=== PATIENT | male | born 1955 | race Caucasian/White ===

== ENCOUNTER 2022-04-26 09:48 | Emergency (ER) | payer MEDICARE, SELFPAY ==
[2022-04-26 09:56] VITALS: BP 146/97; PULSE 61; RESP 18; TEMP 36.4; O2SAT 98; BMI 28.1
--- NOTE | 2022-04-26 10:17 | ED.GENADULT ---
HPI - General Adult General Chief complaint: Chest Pain Stated complaint: high BP, L arm tingly Time Seen by Provider: 04/26/22 09:50 History of Present Illness HPI narrative: This 66-year-old male comes in reporting some chest tightness and discomfort that occurred with light activity just prior to arrival. He also had some tingling sensation in his right upper arm in the medial aspect just above the elbow. He does not report any nausea, vomiting, lightheadedness, shortness of breath, or diaphoresis. He does not have any prior exercise intolerance. He does not have any cardiac risk factors except for hypercholesterolemia. Prior to this he has been in good health. He does not take any medications. He did take an ibuprofen prior to arrival. Related Data Home Medications Medication Instructions Recorded Confirmed No Known Home Medications 04/26/22 04/26/22 Allergies Allergy/AdvReac Type Severity Reaction Status Date / Time No Known Drug Allergies Allergy Verified 04/26/22 09:56 Review of Systems Status of ROS: Reports: 10 or more systems reviewed and unremarkable except as noted in History and below Narrative: Constitutional: No fevers, no weight gain or loss. Eyes: No discharge. No vision changes. HENT: No congestion, no sore throat, no ear pain. Cardiovascular: No palpitations. Chest discomfort as described above. Respiratory: No shortness of breath, no wheezes, no cough. Gastrointestinal: No abdominal pain, no vomiting, no diarrhea. Genitourinary: No dysuria, no hematuria. Musculoskeletal: Normal range of motion. Skin: No rashes, no pruritis. Neurological: No dizziness, weakness, sensory change, speech change. Endo/Heme/Allergies: No bruising or bleeding. No polydipsia. Pysch: no suicidality, no anxiety, no insomnia. All other systems reviewed and are negative. PFSH PFSH Social History Non-prescribed substance use: denies use Exam Const: Vital Signs, click to edit/add: Vital Signs - 24 hr 04/26/22 09:56 04/26/22 15:30 Temperature 97.6 F Pulse Rate [Left P ulse Oximeter] 61 55 L Respiratory Rate 18 20 Blood Pressure [Le ft Upper Arm] 146/97 H 137/92 H Pulse Oximetry 98 99 Other: Constitutional: Well-developed, well-nourished, no acute distress. HEENT: Normocephalic, atraumatic. Neck: Normal range of motion. Nontender. Supple. Heart: Regular. No murmurs. Normal rate. Intact distal pulses. Lungs: Clear to auscultation. No chest discomfort. No wheezes, rhonchi, or rales. Abdomen: Normal bowel sounds. Nontender. No rebound tenderness. Genitalia: Deferred. Back: No midline tenderness. Normal range of motion. Extremities: Normal range of motion. No injury. Skin: Intact. No rash. Warm. No erythema or pallor. Neurologic: No altered sensation. No weakness. Alert and oriented. Psychiatric: No suicidality. No anxiety or depression. No insomnia. Nursing notes and vitals signs are reviewed. Course Vital Signs Vital signs: Initial Vital Signs Temperature 97.6 F 04/26/22 09:56 Temperature Source Temporal Artery Scan 04/26/22 09:56 Pulse Rate 61 04/26/22 09:56 Pulse Rhythm 04/26/22 09:56 Respiratory Rate 18 04/26/22 09:56 Blood Pressure 146/97 H 04/26/22 09:56 Blood Pressure Mean 113 04/26/22 09:56 Blood Pressure Position Sitting 04/26/22 09:56 Pulse Oximetry 98 04/26/22 09:56 Oxygen Delivery Method 04/26/22 09:56 Vital Signs Temperature 97.6 F 04/26/22 09:56 Pulse Rate 61 04/26/22 09:56 Respiratory Rate 18 04/26/22 09:56 Blood Pressure 146/97 H 04/26/22 09:56 Pulse Oximetry 98 04/26/22 09:56 Temperature 97.6 F 04/26/22 09:56 Pulse Rate 55 L 04/26/22 15:30 Respiratory Rate 20 04/26/22 15:30 Blood Pressure 137/92 H 04/26/22 15:30 Pulse Oximetry 99 04/26/22 15:30 Medical Decision Making MDM Narrative Medical decision making narrative: This patient comes in with some chest tightness as described above. His EKG shows normal sinus rhythm without any sign of ST or T-wave abnormalities. His initial troponin also returned at 0.03. He is not triggering his symptoms of big concern for a coronary artery event. He states that he has good exercise tolerance and has not had any chest pain with exertion in the past. He does have some family history and his age is placing him at risk. He also reports hyperlipidemia that is untreated. A repeat troponin returns elevated at 0.36. This was a couple hours after his initial stay here. Again a couple hours later his troponin increased exponentially to 2.47. The patient received 4 baby aspirin initially upon arrival here and states that his pain was gone. He has not had any pain since then. When his troponin increased to 2.47 he was placed on heparin according to protocol. Attempt was made to transfer him but there were no beds available for several hours. Finally he is excepted at [facility]. Dr. Coleman is the accepting physician there. Lab Data Labs: Lab Results 04/26/22 04/26/22 04/26/22 Range/Units 10:22 10:22 10:22 WBC 6.05 (4.50-11.00) K/uL RBC 4.74 (4.30-5.90) m/uL Hgb 14.8 (13.5-17.5) gm/dL Hct 43.8 (37.0-53.0) % MCV 92 (80-100) fL MCH 31 (26-34) pg MCHC 34 (32-36) gm/dL RDW Coeff of Beckie 13.4 (11.5-15.5) % Plt Count 238 (140-440) K/uL Neut % (Auto) 73.9 H (42.0-72.0) % Lymph % (Auto) 15.5 L (20-44) % [place] % (Auto) 7.3 (0.0-11.0) % Eos % (Auto) 2.3 (0.0-7.0) % Baso % (Auto) 0.3 (0.0-3.0) % Neut # (Auto) 4.50 (1.7-7.0) K/uL Lymph # (Auto) 0.90 (0.90-2.90) K/uL [place] # (Auto) 0.40 (0.00-0.90) K/UL Eos # (Auto) 0.14 (0.00-0.50) K/uL Baso # (Auto) 0.02 (0.00-0.30) K/uL Abs Immat Gran (auto) 0.04 (0.00-0.30) K/uL INR (0.91-1.10) APTT (23-33) Seconds Sodium 136 (135-149) mmol/L Potassium 4.1 (3.6-5.1) mmol/L Chloride 107 (96-114) mmol/L Carbon Dioxide 22 (20-32) mmol/L BUN 20 (7-30) mg/dL Creatinine 0.9 (0.5-1.5) mg/dL Estimated Creat Clear 70.70 Estimated GFR 93 ml/min Glucose 114 (60-115) mg/dL Calcium 8.9 (8.4-10.6) mg/dL Troponin I (0.01-0.04) ng/mL SARS-CoV-2 (PCR) (Negative) POC Troponin I 0.03 (0.01-0.04) ng/ml 04/26/22 04/26/22 04/26/22 Range/Units 10:22 12:30 12:33 WBC (4.50-11.00) K/uL RBC (4.30-5.90) m/uL Hgb (13.5-17.5) gm/dL Hct (37.0-53.0) % MCV (80-100) fL MCH (26-34) pg MCHC (32-36) gm/dL RDW Coeff of Beckie (11.5-15.5) % Plt Count (140-440) K/uL Neut % (Auto) (42.0-72.0) % Lymph % (Auto) (20-44) % [place] % (Auto) (0.0-11.0) % Eos % (Auto) (0.0-7.0) % Baso % (Auto) (0.0-3.0) % Neut # (Auto) (1.7-7.0) K/uL Lymph # (Auto) (0.90-2.90) K/uL [place] # (Auto) (0.00-0.90) K/UL Eos # (Auto) (0.00-0.50) K/uL Baso # (Auto) (0.00-0.30) K/uL Abs Immat Gran (auto) (0.00-0.30) K/uL INR 1.06 (0.91-1.10) APTT 38 H (23-33) Seconds Sodium (135-149) mmol/L Potassium (3.6-5.1) mmol/L Chloride (96-114) mmol/L Carbon Dioxide (20-32) mmol/L BUN (7-30) mg/dL Creatinine (0.5-1.5) mg/dL Estimated Creat Clear Estimated GFR ml/min Glucose (60-115) mg/dL Calcium (8.4-10.6) mg/dL Troponin I 0.36 H* (0.01-0.04) ng/mL SARS-CoV-2 (PCR) (Negative) POC Troponin I 0.31 H (0.01-0.04) ng/ml 04/26/22 04/26/22 Range/Units 14:41 16:54 WBC (4.50-11.00) K/uL RBC (4.30-5.90) m/uL Hgb (13.5-17.5) gm/dL Hct (37.0-53.0) % MCV (80-100) fL MCH (26-34) pg MCHC (32-36) gm/dL RDW Coeff of Beckie (11.5-15.5) % Plt Count (140-440) K/uL Neut % (Auto) (42.0-72.0) % Lymph % (Auto) (20-44) % [place] % (Auto) (0.0-11.0) % Eos % (Auto) (0.0-7.0) % Baso % (Auto) (0.0-3.0) % Neut # (Auto) (1.7-7.0) K/uL Lymph # (Auto) (0.90-2.90) K/uL [place] # (Auto) (0.00-0.90) K/UL Eos # (Auto) (0.00-0.50) K/uL Baso # (Auto) (0.00-0.30) K/uL Abs Immat Gran (auto) (0.00-0.30) K/uL INR (0.91-1.10) APTT (23-33) Seconds Sodium (135-149) mmol/L Potassium (3.6-5.1) mmol/L Chloride (96-114) mmol/L Carbon Dioxide (20-32) mmol/L BUN (7-30) mg/dL Creatinine (0.5-1.5) mg/dL Estimated Creat Clear Estimated GFR ml/min Glucose (60-115) mg/dL Calcium (8.4-10.6) mg/dL Troponin I 2.47 H* (0.01-0.04) ng/mL SARS-CoV-2 (PCR) Negative SARS-CoV-2 (Negative) POC Troponin I (0.01-0.04) ng/ml ECG Data Attestation: I personally reviewed and interpreted this ECG as follows: Interpretation: Normal sinus rhythm, rate 58 beats per minute. There are no ST or T-wave abnormalities. Discharge Plan Discharge Clinical Impression: Non-STEMI (non-ST elevated myocardial infarction) Patient Disposition: Xfer Other Condition: Unchanged Prescriptions: No Action No Known Home Medications 0RF Follow Up/Referrals: Provider,Not a Local [Primary Care Provider] - Stand Alone Forms: [facility] Info Instructions
[2022-04-26] MEDS: ASPIRIN 81 MG TAB.CHEW 324 MG PO (10:34)
[2022-04-26 10:49] LABS: Troponin, Point-of-Care* 0.03 ng/ml (0.01-0.04)
[2022-04-26 10:55] LABS: Chloride* 107 mmol/L (96-114)
[2022-04-26 10:56] LABS: Potassium* 4.1 mmol/L (3.6-5.1); Sodium* 136 mmol/L (135-149)
[2022-04-26 10:58] LABS: Creatinine* 0.9 mg/dL (0.5-1.5); Estimated Glomerular Filt Rate 93 ml/min
[2022-04-26 10:59] LABS: Blood Urea Nitrogen* 20 mg/dL (7-30); Calcium* 8.9 mg/dL (8.4-10.6); Carbon Dioxide* 22 mmol/L (20-32); Glucose* 114 mg/dL (60-115)
[2022-04-26 12:14] LABS: Basophils Absolute Auto 0.02 K/uL (0.00-0.30); Basophils Percent Auto 0.3 % (0.0-3.0); Eosinophils Absolute Auto 0.14 K/uL (0.00-0.50); Eosinophils Percent Auto 2.3 % (0.0-7.0); Hematocrit 43.8 % (37.0-53.0); Hemoglobin* 14.8 gm/dL (13.5-17.5); Immature Granulocytes Abs Auto 0.04 K/uL (0.00-0.30); Lymphocytes Percent Auto 15.5 % (20-44); Mean Corpuscular HGB Conc 34 gm/dL (32-36); Mean Corpuscular Hemoglobin 31 pg (26-34); Mean Corpuscular Volume 92 fL (80-100); Monocytes Percent Auto 7.3 % (0.0-11.0); Neutrophils Percent Auto 73.9 % (42.0-72.0); Platelet Count* 238 K/uL (140-440); RDW Coefficient of Variation % 13.4 % (11.5-15.5); Red Blood Count 4.74 m/uL (4.30-5.90); White Blood Count* 6.05 K/uL (4.50-11.00)
[2022-04-26 12:15] LABS: Slide Review Reflex No
[2022-04-26 13:12] LABS: Troponin, Point-of-Care* 0.31 ng/ml (0.01-0.04)
[2022-04-26 13:23] LABS: Troponin I* 0.36 ng/mL (0.01-0.04)
--- NOTE | 2022-04-26 15:18 | ED.NURSE ---
Critical lab received, landen Yan 2.47. updated.
[2022-04-26 15:19] LABS: Troponin I* 2.47 ng/mL (0.01-0.04)
[2022-04-26 15:30] VITALS: BP 137/92; PULSE 55; RESP 20; O2SAT 99
[2022-04-26 15:34] LABS: INR 1.06 (0.91-1.10); Prothrombin Time 14.3 Seconds
[2022-04-26 15:35] LABS: Partial Thromboplastin Time* 38 Seconds (23-33)
[2022-04-26] MEDS: HEPARIN 5,000 UNIT/0.5 ML INJ 4000 UNIT IVP (16:15)
[2022-04-26] MEDS: HEPARIN 25,000 UNIT/500 ML BAG 20 UNIT IV (16:16)
--- NOTE | 2022-04-26 16:29 | ED.NURSE ---
Call to [facility], they have no beds.
--- NOTE | 2022-04-26 16:45 | ED.NURSE ---
Call to [facility]. They have submitted a bed request for pt, but they are unsure if/when pt will get a bed.
[2022-04-26 17:51] LABS: SARS PCR* Negative SARS-CoV-2 (Negative)
--- NOTE | 2022-04-26 18:40 | ED.NURSE ---
Nurse to nurse report to JANET Feliz.
[2022-04-26 19:30] VITALS: BP 118/85; PULSE 54; RESP 16; TEMP 36.4; O2SAT 96
--- NOTE | 2022-04-26 20:15 | ED.NURSE ---
Pt off unit via stretcher en route to [facility]. All belongings sent w/ pt's spouse. Heparin continues to infuse.
--- NOTE | 2022-06-03 17:54 | ED.NURSE ---
chart accessed for PCS for EMS
== END 2022-04-26 20:36 | disposition other institution (70) ==
PROVIDERS: Emergency Provider Emergency Medicine Emergency Medical Services
DX: I21.4 Non-ST elevation (NSTEMI) myocardial infarction (principal)
CPT/HCPCS: 36415; 80048; 84484; 85025; 85027; 85610; 85730; 87635; 93005; 99284; 99285; A9270; J1644

== ENCOUNTER 2022-04-26 19:54 | Outpatient (CLI) | payer MEDICARE, SELFPAY | END 2022-04-26 19:55 | disposition home or self-care (01) | PROVIDERS: Visit Provider Emergency Medicine Emergency Medical Services | DX: I21.4 Non-ST elevation (NSTEMI) myocardial infarction (principal) | CPT/HCPCS: A0425; A0434 ==